=== PATIENT | male | born 1980 | race Caucasian/White ===

== ENCOUNTER 2022-02-09 16:14 | Emergency (ER) | payer OTHER ==
[~2022-02-09] VITALS: Ht 190.5 cm; Wt 88.5 kg
--- NOTE | 2022-02-09 16:30 | NUR ---
at bedside for evaluation.
[2022-02-09 16:52] LABS: HEMATOCRIT 38.6 % (36.7-47.1); MEAN CORPUSCULAR HEMOGLOBIN 30.7 uug (23.8-33.4); MEAN CORPUSCULAR VOLUME 90.4 fL (73.0-96.2); PLATELET COUNT (AUTO) 321 K/uL (152-348)
[2022-02-09 17:00] LABS: *OCCULT BLOOD STOOL NEGATIVE (NEGATIVE); CREATININE 1.1 mg/dL (0.6-1.3); POTASSIUM 4.3 mmol/L (3.5-5.1)
[2022-02-09 17:05] LABS: BILIRUBIN,TOTAL 0.3 mg/dL (0.2-1.0); TOTAL PROTEIN, SERUM 6.8 g/dL (6.4-8.2)
[2022-02-09 17:22] VITALS: BP 121/63
--- NOTE | 2022-02-09 17:22 | NUR ---
Patient discharged to home in stable condition. Written and verbal after care instructions given. Patient verbalizes understanding of instructions. Stressed follow up or return to ER for worsening s/s.
== END 2022-02-09 17:23 | disposition home or self-care (01) ==
LOC: ER 16:14
DX: K62.5 Hemorrhage of anus and rectum (principal); K64.4 Residual hemorrhoidal skin tags
CPT/HCPCS: 36415; 85025; 85730; A4663